=== PATIENT | male | born 1970 | race Caucasian/White ===

== ENCOUNTER 2023-09-29 11:53 | Outpatient (CLI) | payer BC | END 2023-09-29 11:54 | disposition home or self-care (01) | LOC: CSHCP 11:53 | PROVIDERS: ATTEND Internal Medicine | DX: J44.89 Other specified chronic obstructive pulmonary disease (principal); J45.30 Mild persistent asthma, uncomplicated | CPT/HCPCS: 94060; 94726; 94729; 94760 ==

== ENCOUNTER 2024-11-10 08:58 | Outpatient (CLI) | payer BC ==
[2024-11-10] MEDS ORDERED: Iopamidol 300 61% 100 ML VIAL FS ONE (13:42)
== END 2024-11-10 08:59 | disposition home or self-care (01) ==
LOC: CSHCT 08:58
PROVIDERS: ATTEND Family Medicine
DX: R10.32 Left lower quadrant pain (principal); Z85.47 Personal history of malignant neoplasm of testis; Z90.79 Acquired absence of other genital organ(s)
CPT/HCPCS: 72193; Q9967

== ENCOUNTER 2024-11-27 14:50 | Outpatient (CLI) | payer BC | END 2024-11-27 14:51 | disposition home or self-care (01) | LOC: CSHMRI 14:50 | PROVIDERS: ATTEND Family Medicine | DX: G57.82 Other specified mononeuropathies of left lower limb (principal); M51.369 Other intervertebral disc degeneration, lumbar region without mention of lumbar back pain or lower extremity pain; M48.061 Spinal stenosis, lumbar region without neurogenic claudication; M51.379 Other intervertebral disc degeneration, lumbosacral region without mention of lumbar back pain or lower extremity pain; M51.27 Other intervertebral disc displacement, lumbosacral region | CPT/HCPCS: 72148 ==